=== PATIENT | female | born 1995 | race Caucasian/White ===

== ENCOUNTER 2019-09-11 19:25 | Emergency (ER) | payer BC ==
[~2019-09-11] VITALS: Ht 172.7 cm; Wt 127.0 kg
[2019-09-11] MEDS ORDERED: VYVANSE40 MG PO (19:39)
[2019-09-11] MEDS ORDERED: ONDANSETRON HCL8 MG PO (19:39)
[2019-09-11] MEDS ORDERED: OMEPRAZOLE20 MG PO (22:40)
== END 2019-09-11 22:50 | disposition home or self-care (01) ==
LOC: ED 19:25
DX: R10.9 Unspecified abdominal pain (principal)
CPT/HCPCS: 74177; 80053; 81001; 83690; 84703; 85025; 96361; 96375; 99284-25; C9113; J2405; J2550; J7030; Q9967

== ENCOUNTER 2020-07-30 17:44 | Inpatient (IN) | payer BC ==
[~2020-07-30] VITALS: Ht 170.2 cm; Wt 145.2 kg
[~2020-07-30 17:44] MED LIST: OMEPRAZOLE20 MG PO; ONDANSETRON HCL8 MG PO; VYVANSE40 MG PO
--- NOTE | 2020-07-30 18:00 | NUR ---
BOTH NARES SWABBED FOR COVID-19 WITHOUT COMPLICATION. SAMPLE TAKEN TO [facility] FOR RAPID TESTING.
--- NOTE | 2020-07-31 10:09 | PR ---
[facility] [address] [place], [place] [address] Signed Progress Notes IP Datetime Report Generated by KASIE: 07/31/2020 10:09 PROGRESS NOTES: [id number] Impression: Reassuring Heart Rate (Annotations: Data stored by KASIE on behalf of user) Plan: Cervical Ripening VITAL SIGNS: [id number] Vital Signs: Reviewed EXAM: [id number] Dilatation: 0.0 Effacement: 60 Station: -2 Contractions: irregular MEMBRANES: [id number] Comments: Feeling contractions, not yet painful. Headache present but no worse. Reviewed labs; Cr has returned to baseline. However, reflexes 3+ bilaterally (patellar) no clonus. Bilateral lower extremity edema is worse. S/p cytotec x 5, continue cytotec induction but will consider cook catheter when dilated enough to allow. Discussed with pt and her , they are agreeable with plan. FETUS A: [id number] FHR Baseline: 155 Variability: Moderate 6-25bpm Accelerations: 15X15 Decelerations: Variable FHR Category: Category II Presentation: Vertex Comments on Fetus A: No evidence of persistent acidosis FETUS B: [id number] Signing Physician: Paolo Anderson DO Copies: ~ *Electronically Signed* 07/31/20 1009 PAOLO ANDERSON DO PATIENT NAME: ZOILA QURESHI PROGRESS NOTE DATE OF : [birth year] PHYSICIAN: PAOLO ANDERSON #: [id number] REPORT IS CONFIDENTIAL AND NOT TO BE RELEASED WITHOUT AUTHORIZATION
--- NOTE | 2020-07-31 20:38 | PR ---
[facility] [address] [place], [place] [address] Signed Progress Notes IP Datetime Report Generated by CPN: 07/31/2020 20:38 PROGRESS NOTES: [id number] Impression: Reassuring Heart Rate Procedures: Artificial ROM Plan: Continue Present Management VITAL SIGNS: [id number] Vital Signs: Reviewed EXAM: [id number] Dilatation: 0.0 Effacement: 60 Station: -2 Contractions: irregular MEMBRANES: [id number] Membranes Status: Ruptured Comments: 24 yo at 38 weeks gestation MIOL for pre-eclampsia without severe features s/p cytotec x 8 Attempted Cook placement, but during attempt cervix dilated to 1.5cm and moved from far left to midline, with head well-applied, allowing for AROM of large amount clear fluid. Plan: recheck in 2 hours or sooner if requesting epidural. If no change in 2 hours, anticipate low-dose pitocin, as was discussed with pt and FOB. All questions answered to the best of my ability to the apparent satisfaction of patient and FOB. FETUS A: [id number] FHR Baseline: 155 Variability: Moderate 6-25bpm Accelerations: 15X15 Decelerations: Variable FHR Category: Category II Presentation: Vertex Comments on Fetus A: No evidence of persistent acidosis FETUS B: [id number] Signing Physician: Paolo Anderson DO Copies: *Electronically Signed* 07/31/202037 PAOLO ANDERSON DO PATIENT NAME: ZOILA QURESHIQUALINE PROGRESS NOTE DATE OF : 93 PHYSICIAN: PAOLO ANDERSON DO RPT #: [id number] REPORT IS CONFIDENTIAL AND NOT TO BE RELEASED WITHOUT AUTHORIZATION [address] [address] Signed ~ *Electronically Signed* 07/31/202037 PAOLO ANDERSON DO PATIENT NAME: ZOILA QURESHIQUALINE PROGRESS NOTE DATE OF : 93 PHYSICIAN: PAOLO ANDERSON DO RPT #: [id number] REPORT IS CONFIDENTIAL AND NOT TO BE RELEASED WITHOUT AUTHORIZATION
--- NOTE | 2020-08-01 08:18 | PR ---
[facility] [address] [place], [place] [address] Signed Progress Notes IP Datetime Report Generated by CPFrancheska: 08/01/2020 08:18 PROGRESS NOTES: [id number] Impression: Normal Progression of Labor Procedures: Intrauterine Pressure Catheter; Scalp Electrode Plan: Continue Present Management; Anesthesia Consult VITAL SIGNS: [id number] Vital Signs: Reviewed EXAM: [id number] Dilatation: 4.0 Effacement: 90 Station: -1 Contractions: irregular MEMBRANES: [id number] Membranes Status: Ruptured Comments: 24 yo at 38.1 MIOL for Pre-eclampsia without severe features GDM-insulin s/p cytotec x 8, AROM yielding large amount clear fluid at 07/31, pitocin started overnight, now making cervical change. Significant pain/anxiety; epidural provided only unilateral coverage Discussed options: recommend replacing epidural, TUTORING CLINICIAN will be available after first OR case. Ok to give IV pain medication in the meantime. Fentanyl/phenergan ordered. FETUS A: [id number] FHR Baseline: 155 Variability: Moderate 6-25bpm Accelerations: 15X15 Decelerations: Variable FHR Category: Category II Presentation: Vertex Comments on Fetus A: No evidence of persistent acidosis FETUS B: [id number] Signing Physician: Paolo Anderson DO Copies: *Electronically Signed* 08/01/20 0818 PAOLO ANDERSON DO PATIENT NAME: ZOILA QURESHI PROGRESS NOTE DATE OF : 93 PHYSICIAN: PAOLO ANDERSON DO RPT #: [id number] REPORT IS CONFIDENTIAL AND NOT TO BE RELEASED WITHOUT AUTHORIZATION [facility] [address] [place] [id number] Signed ~ *Electronically Signed* 08/01/20 0818 PAOLO ANDERSON DO PATIENT NAME: ZOILA QURESHI PROGRESS NOTE DATE OF : 93 PHYSICIAN: PAOLO ANDERSON DO RPT #: [id number] REPORT IS CONFIDENTIAL AND NOT TO BE RELEASED WITHOUT AUTHORIZATION
--- NOTE | 2020-08-02 09:11 | PR ---
[facility] [address] [place], [place] [address] Signed PP Progress Notes Datetime Report Generated by KASIE: 08/02/2020 09:11 SUBJECTIVE: [id number] Pain: Within Normal Limits Nausea/Vomiting: Denies Flatus: Yes Bowel Movement: No Vital Signs: [id number] Vital Signs: Reviewed Notable Details: Elevated BP Cardiovascular: Normal Respiratory: Normal Abdomen/Uterus: Normal Lochia: Normal Extremities: Abnormal Exam Comments: NAD RRR CTAB fundus firm below umbilicus extremities: 2+ pitting edema BL LE difficulty , requesting consult IMPRESSION/PLAN/PROCEDURES: [id number] Impression: Normal Progression; Difficulties; Induced Hypertension Plan: Continue Present Management; Consult Progress Notes: PPD#1 s/p MIOL for pre-eclampsia without severe features Intermittent HTN, pt reports her BP has been "much higher" if she is talking during BP checks; will continue to monitor BP today q2h, pt counseled to not talk during checks, and if consistently elevated start Procardia before discharge. Desires OCP for contraception, discussed waiting until 6 weeks to start then plan minipill. Has pshychiatry appt scheduled for first week of August Signing Physician: Paolo Anderson DO Copies: *Electronically Signed* 08/02/20910 PAOLO ANDERSON DO PATIENT NAME: ZOILA QURESHI PROGRESS NOTE DATE OF : 93 PHYSICIAN: PAOLO ANDERSON DO RPT #: [id number] REPORT IS CONFIDENTIAL AND NOT TO BE RELEASED WITHOUT AUTHORIZATION [address] [place], [place] [address] Signed ~ *Electronically Signed* 08/02/20 09 PAOLO ANDERSON DO PATIENT NAME: ZOILA QURESHI PROGRESS NOTE DATE OF : 93 PHYSICIAN: PAOLO ANDERSON DO RPT #: [id number] REPORT IS CONFIDENTIAL AND NOT TO BE RELEASED WITHOUT AUTHORIZATION
== END 2020-08-02 16:20 | disposition home or self-care (01) | DRG 807 ==
LOC: FBC 17:44
PROVIDERS: ADMIT Obstetrics & Gynecology; ATTEND Obstetrics & Gynecology
PROC: 3E0P7VZ Introduction of Hormone into Female Reproductive, Via Natural or Artificial Opening (ICD-10-PCS; 2020-07-30)
PROC: 10907ZC Drainage of Amniotic Fluid, Therapeutic from Products of Conception, Via Natural or Artificial Opening (ICD-10-PCS; 2020-07-31)
PROC: 00HU33Z Insertion of Infusion Device into Spinal Canal, Percutaneous Approach (ICD-10-PCS; 2020-07-31)
PROC: 3E0R3BZ Introduction of Anesthetic Agent into Spinal Canal, Percutaneous Approach (ICD-10-PCS; 2020-07-31)
PROC: 10E0XZZ Delivery of Products of Conception, External Approach (ICD-10-PCS; principal; 2020-08-01)
PROC: 10H07YZ Insertion of Other Device into Products of Conception, Via Natural or Artificial Opening (ICD-10-PCS; 2020-08-01)
PROC: 0KQM0ZZ Repair Perineum Muscle, Open Approach (ICD-10-PCS; 2020-08-01)
DX: O14.04 Mild to moderate pre-eclampsia, complicating childbirth (principal); Z37.0 Single live birth; Z3A.38 38 weeks gestation of pregnancy; Z20.822 Contact with and (suspected) exposure to COVID-19; O76 Abnormality in fetal heart rate and rhythm complicating labor and delivery; O24.424 Gestational diabetes mellitus in childbirth, insulin controlled; O99.214 Obesity complicating childbirth; E66.9 Obesity, unspecified; O70.1 Second degree perineal laceration during delivery; O99.52 Diseases of the respiratory system complicating childbirth; J45.909 Unspecified asthma, uncomplicated; O99.344 Other mental disorders complicating childbirth; F41.9 Anxiety disorder, unspecified; F32.9 Major depressive disorder, single episode, unspecified; Z88.8 Allergy status to other drugs, medicaments and biological substances; Z79.899 Other long term (current) drug therapy
CPT/HCPCS: 01960; 36415; 80053; 85025; 85027; C9803; J0456; J2001; J2405; J2550; J2590; J2795; J3010; J7060; J7121; U0003

== ENCOUNTER 2021-05-22 10:17 | Emergency (ER) | payer BC ==
[~2021-05-22] VITALS: Ht 172.7 cm; Wt 145.2 kg
--- OUTSIDE RECORDS SUMMARY | 2021-05-22 10:20 | XMS ---
PreManage Notification: ZOILA QURESHI Security Guide Domestic Tour Events No recent Security Events currently on file CRITERIA MET - [facility] CARE PROVIDERS There are no care providers on record at this time. Connie has no Care Guidelines for this patient. [place] VISIT COUNT (12 MO.) Fabby Lewis 1 [place] TOTAL 2 NOTE: Visits indicate total known visits. ED/C VISIT TRACKING (12 MO.) 05/22/2021 10:19 [place] [facility] [place] TYPE: Emergency COMPLAINT: - HEADACHE 10/22/2020 18:52 [place] TYPE: Emergency INPATIENT VISIT TRACKING (12 MO.) 07/30/2020 17:44 [place] TYPE: [facility] COMPLAINT: - INDUCTION DIAGNOSES: - Major depressive disorder, single episode, unspecified - Other mental disorders complicating childbirth - Second degree perineal laceration during delivery - Anxiety disorder, unspecified - Unspecified asthma, uncomplicated - Abnormality in heart rate and rhythm complicating labor and delivery - Other extermination supervisor (current) drug therapy - Unspecified asthma, uncomplicated - Mild to moderate pre-eclampsia, complicating childbirth - Single live - Obesity complicating childbirth - Mild to moderate pre-eclampsia, third trimester - Single live - Diseases of the respiratory system complicating childbirth - Other mental disorders complicating childbirth - Diseases of the respiratory system complicating childbirth - Abnormality in heart rate and rhythm complicating labor and delivery - Allergy status to other drugs, medicaments and biological substances - Obesity complicating childbirth - Mild to moderate pre-eclampsia, complicating childbirth - Other extermination supervisor (current) drug therapy - Major depressive disorder, single episode, unspecified - Allergy status to other drugs, medicaments and biological substances - Gestational diabetes mellitus in childbirth, insulin controlled - 38 weeks gestation of - Anxiety disorder, unspecified - 38 weeks gestation of - Obesity, unspecified - Gestational diabetes mellitus in childbirth, insulin controlled - Obesity, unspecified - Second degree perineal laceration during delivery [email or web address]
[2021-05-22] MEDS ORDERED: VENLAFAXINE HC150 MG PO (11:25)
[2021-05-22] MEDS ORDERED: VYVANSE50 MG PO (11:26)
[2021-05-22] MEDS ORDERED: DIPHENHYDRAMINE25 M1 PO (11:26)
[2021-05-22] MEDS ORDERED: PYRIDOXINE HCL25 MG PO (11:26)
[2021-05-22] MEDS ORDERED: ACETAMINOPHEN-1 EAC1 PO (15:52)
== END 2021-05-22 16:19 | disposition home or self-care (01) ==
LOC: ED 10:17
DX: R51.9 Headache, unspecified (principal); G43.909 Migraine, unspecified, not intractable, without status migrainosus; Z88.8 Allergy status to other drugs, medicaments and biological substances; Z79.899 Other long term (current) drug therapy
CPT/HCPCS: 36415; 70450; 80053; 81001; 84550; 85025; 96365; 99284-25; J2765; J7030

== ENCOUNTER 2021-06-04 19:34 | Emergency (ER) | payer BC ==
[~2021-06-04] VITALS: Ht 170.2 cm; Wt 144.2 kg
[~2021-06-04 19:34] MED LIST changes: +ACETAMINOPHEN-1 EAC1 PO; +DIPHENHYDRAMINE25 M1 PO; +PYRIDOXINE HCL25 MG PO; +VENLAFAXINE HC150 MG PO; +VYVANSE50 MG PO
--- OUTSIDE RECORDS SUMMARY | 2021-06-04 19:38 | XMS ---
PreManage Notification: ZOILA WADE Security English As A Second Language Teacher Events No recent Security Events currently on file CRITERIA MET - [facility] - Has Care Guidelines - PDMP - [facility] - 2 Visits in 30 Days CARE PROVIDERS JEANIE VIEIRA Nurse Practitioner: 05/23/2021-Current PHONE: [phone] Connie has no Care Guidelines for this patient. Care History Medical/Surgical 05/23/2021 [facility] - Patient is currently established with [facility]. If patient is seen in the ED during business hours. Please contact CHWs at [facility]. Care Recommendation: If this patient has had 5 or more Emergency Department visits in the last 12 months.\T\nbsp;Patient will require education on the scope and purpose of the ED as an acute care provider not a Primary Care Provider and should not be utilized for chronic conditions.\T\nbsp; These are guidelines and the provider should exercise clinical judgment when providing care. E.D. VISIT COUNT (12 MO.) King Lewis 2 [place] TOTAL 3 NOTE: Visits indicate total known visits. ED/UCC VISIT TRACKING (12 MO.) 06/04/2021 19:36 [place] [facility] [place] TYPE: Emergency COMPLAINT: - VOMITING/19 WEEKS PREG 05/22/2021 10:19 [place] [facility] [place] TYPE: Emergency COMPLAINT: - HEADACHE DIAGNOSES: - Migraine, unspecified, not intractable, without status migrainosus - Allergy status to other drugs, medicaments and biological substances - Other fpc (current) drug therapy - Headache, unspecified 10/22/2020 18:52 [place] [facility] TYPE: Emergency INPATIENT VISIT TRACKING (12 MO.) 07/30/2020 17:44 [place] TYPE: [facility] COMPLAINT: - INDUCTION DIAGNOSES: - Major depressive disorder, single episode, unspecified - Other mental disorders complicating childbirth - Second degree perineal laceration during delivery - Anxiety disorder, unspecified - Unspecified asthma, uncomplicated - Abnormality in heart rate and rhythm complicating labor and delivery - Other continuous churn buttermaker (current) drug therapy - Unspecified asthma, uncomplicated [...] to moderate pre-eclampsia, complicating childbirth - Other fpc (current) drug therapy - Major depressive disorder, single episode, unspecified - Allergy status to other drugs, medicaments and biological substances - Gestational diabetes mellitus in childbirth, insulin controlled - 38 weeks gestation of - Anxiety disorder, unspecified - 38 weeks gestation of - Obesity, unspecified - Gestational diabetes mellitus in childbirth, insulin controlled - Obesity, unspecified - Second degree perineal laceration during delivery [email or web address]
== END 2021-06-04 23:20 | disposition home or self-care (01) ==
LOC: ED 19:34
DX: O21.9 Vomiting of pregnancy, unspecified (principal); O99.352 Diseases of the nervous system complicating pregnancy, second trimester; G43.909 Migraine, unspecified, not intractable, without status migrainosus; Z88.8 Allergy status to other drugs, medicaments and biological substances; Z79.899 Other long term (current) drug therapy; Z3A.19 19 weeks gestation of pregnancy
CPT/HCPCS: 36415; 80053; 81001; 83735; 85025; 96374; 96376; 99284-25; J2405; J7030

== ENCOUNTER 2021-08-24 18:56 | Emergency (ER) | payer BC ==
[~2021-08-24] VITALS: Ht 170.2 cm; Wt 143.8 kg
--- OUTSIDE RECORDS SUMMARY | 2021-08-24 19:00 | XMS ---
PreManage Notification: ZOILA WADE Security Fiscal Manager Events No recent Security Events currently on file CRITERIA MET - PDM - [facility] - Has Care Guidelines CARE PROVIDERS JEANIE VIEIRA Nurse Practitioner: 05/23/2021-Current PHONE: [phone] Connie has no Care Guidelines for this patient. Care History Medical/Surgical 05/23/2021 [facility] - Patient is currently established with [facility]. If patient is seen in the ED during business hours. Please contact CHWs at [facility]. Care Recommendation: If this patient has had [...] providing care. E.D. VISIT COUNT (12 MO.) Fabby Lewis 3 [facility] TOTAL 4 NOTE: Visits indicate total known visits. ED/UCC VISIT TRACKING (12 MO.) 08/24/2021 18:57 [place] [facility] [place] TYPE: Emergency COMPLAINT: - CUT RIGHT FINGER 06/04/2021 19:36 [place] [facility] [place] TYPE: Emergency COMPLAINT: - VOMITING/19 WEEKS PREG DIAGNOSES: - Other residential (current) drug therapy - Allergy status to other drugs, medicaments and biological substances - 19 weeks gestation of - Diseases of the nervous system complicating , second trimester - Vomiting, unspecified - Migraine, unspecified, not intractable, without status migrainosus - Vomiting of , unspecified 05/22/2021 10:19 [place] TYPE: Emergency COMPLAINT: - HEADACHE DIAGNOSES: - Migraine, unspecified, not intractable, without status migrainosus - Allergy status to other drugs, medicaments and biological substances - Other terminal carman (current) drug therapy - Headache, unspecified 10/22/2020 18:52 [facility] TYPE: Emergency INPATIENT VISIT TRACKING (12 MO.) No inpatient visits to display in this time frame [email or web address]
[2021-08-24] MEDS ORDERED: EFFEXOR XR150 MG PO (19:22)
[2021-08-24] MEDS ORDERED: HUMULIN N100 UNIT/1 SUB-Q (19:23)
[2021-08-24] MEDS ORDERED: ADULT ASPIRIN R81 MG PO (19:24)
== END 2021-08-24 21:33 | disposition home or self-care (01) ==
LOC: ED 18:56
DX: S61.210A Laceration without foreign body of right index finger without damage to nail, initial encounter (principal); W25.XXXA Contact with sharp glass, initial encounter; Z23 Encounter for immunization; G43.909 Migraine, unspecified, not intractable, without status migrainosus; Z88.8 Allergy status to other drugs, medicaments and biological substances; Z79.899 Other long term (current) drug therapy; Z79.82 Long term (current) use of aspirin
CPT/HCPCS: 12001; 90471; 90715; 99282-25

== ENCOUNTER 2021-10-04 | Inpatient (IN) | payer BC ==
[~2021-10-04] VITALS: Ht 172.7 cm; Wt 149.7 kg
[~2021-10-04] MED LIST changes: +ADULT ASPIRIN R81 MG PO; +EFFEXOR XR150 MG PO; +HUMULIN N100 UNIT/1 SUB-Q
--- NOTE | ~2021-10-04 | OR ---
[facility] [address], [place] [address] Draft DATE OF OPERATION: 10/05/2021 SURGEON: Paolo Anderson DO PROCEDURE: Primary low-transverse . CHEST PAINTING AND SEALING SUPERVISOR: Sydney Haywood MD PREOPERATIVE DIAGNOSES: Non-reassuring heart tones remote from delivery, gestational hypertension, GDM insulin controlled, BMI 49, anxiety and depression, ADHD, migraines, 37 weeks gestation. POSTOPERATIVE DIAGNOSES: Term , delivered, nuchal x2, gestational hypertension, gestational diabetes, BMI 49, anxiety and depression, ADHD, migraines. ANESTHESIA: Epidural. BLOOD LOSS: 750 mL. COMPLICATIONS: None. FINDINGS: Viable term female weighing 6 pounds 7 ounces, Apgars 9 and 9 at 1 and 5 minutes respectively. Nuchal cord tight x2. Normal-appearing uterus, tubes, and ovaries. INDICATIONS: The patient is a very pleasant 25-year-old G2, P1-0-0-1, who presented for scheduled medical induction of labor for gestational hypertension. She was induced with Cytotec, amniotomy and Pitocin and progressed slowly but steadily after starting Pitocin. After dilating to 5 cm, she began having an occasional variable D cells which progressed in frequency . They were initially responsive to amnioinfusion, but ultimately amnioinfusion and Pitocin were discontinued due to worsening status with recurrent deep variable decelerations. At this point, the patient was rechecked and while cervix was progressively effacing was only dilated to 6 cm. Risks, benefits, and alternatives PATIENT NAME: ZOILA WADE OPERATIVE REPORT DATE OF : [birth year] REPORT #: [id number] PHYSICIAN: PAOLO ANDERSON DO PCP: JEANIE VIEIRA REPORT IS CONFIDENTIAL AND NOT TO BE RELEASED WITHOUT AUTHORIZATION [facility] [address] [place] [id number] Draft to delivery were discussed for non-reassuring status and the patient elected to proceed. Terbutaline was administered with improvement in heart tones. Consents were signed and the patient was taken to the operating room. PROCEDURE IN DETAIL: The patient was brought back to the operating room where she was given 3 g Ancef and 500 mg azithromycin preoperatively. Epidural was bolused by Anesthesia. were placed and Rios was confirmed to be in place and functioning well. She was prepped and draped. She was positioned in supine position with a leftward tilt and prepped and draped in a normal sterile fashion. Adequate anesthesia was confirmed and Pfannenstiel incision was made with a scalpel and carried through to the underlying layer of fascia, which was incised at midline and extended laterally with Fang scissors. Inferior margin of fascia was grasped with Preston's, elevated and underlying rectus muscles dissected off bluntly and sharply with Fang scissors, this was released. Superior margin of fascia was grasped and elevated with Preston clamps. Underlying rectus muscle was dissected off bluntly and sharply with Fang scissors with Bovie cautery used to cauterize perforating vessels as they were encountered. Peritoneum was entered bluntly and extended with lateral traction. Americo retractor was placed and hysterotomy was made with a scalpel, this was extended laterally with gentle digital traction superiorly and inferiorly. Infant's head was gently grasped and elevated to the hysterotomy and delivered easily followed by the remainder of the body. Nuchal cord x2 was reduced. Cord was immediately doubly clamped and cut and baby was handed off to waiting nursery team including respiratory therapist and railroad crossing protection maintainer. Segment of cord was collected for cord gases. Cord blood was collected for type and Jo-Ann and placenta was manually extracted. Uterus was cleared of clots and debris and hysterotomy was closed in a double-layer closure with 0 Monocryl, 1st in a running locked manner, secondly, in an imbricating manner. Excellent hemostasis was noted. Pelvis was irrigated with warm sterile saline and hemostasis was once again confirmed. Uterus, tubes, and ovaries were inspected with normal findings as noted above. Peritoneum was closed with 2-0 Vicryl in a running fashion. Rectus muscle was approximated at midline with 0 Vicryl in a simple interrupted fashion after which the rectus muscle was inspected. Perforating vessels were cauterized with Bovie cautery and suction irrigation with warm sterile saline was performed, confirming excellent hemostasis. The fascia was closed with 0 Vicryl in a running fashion, working 1st from right apex to midline, then left apex to midline meeting in the middle. Subcutaneous layer was irrigated with warm sterile saline. Perforating vessels were cauterized with Bovie cautery and closed in two separate layers for Lul's fascia and subcutaneous tissue with 3-0 Vicryl in a running fashion for each layer. Skin was closed with cheyenne. Uterus was Crede'd and noted to be firm. Sponge and instrument counts were correct x2. The patient was taken to recovery in stable and satisfactory condition. PATIENT NAME: ZOILA WADE OPERATIVE REPORT DATE OF : [birth year] REPORT #: [id number] PHYSICIAN: PAOLO ANDERSON DO PCP: JEANIE VIEIRA CLIENT PROFESSIONAL REPORT IS CONFIDENTIAL AND NOT TO BE RELEASED WITHOUT AUTHORIZATION [facility] [address] [place], [place] [address] Draft DO KAYLEY Stack/DEMETRIA /[id number] Copies: ~ PATIENT NAME: ZOILA WADE OPERATIVE REPORT DATE OF : [birth year] REPORT #: [id number] PHYSICIAN: PAOLO ANDERSON DO PCP: JEANIE VIEIRA REPORT IS CONFIDENTIAL AND NOT TO BE RELEASED WITHOUT AUTHORIZATION
--- NOTE | 2021-10-04 12:49 | PR ---
[facility] [address] [place], [place] [address] Signed Progress Notes IP Datetime Report Generated by CPN: 10/04/2021 12:49 PROGRESS NOTES: [id number] Impression: Reassuring Heart Rate Procedures: Epidural Placement Plan: Continue Present Management VITAL SIGNS: [id number] Vital Signs: Reviewed VS Notable Details: Severe-range BP at 0733 in error, see repeat. Normal preE labs on admission EXAM: [id number] Dilatation: 2.0 Effacement: 60 Station: -2 Contractions: mild, irregular, tracing poorly while side-lying MEMBRANES: [id number] Membranes Status: Intact Comments: Pt is doing well, sitting in tub for management of contraction pain. requesting epidural. S/p cytotec x 4, anticipate AROM after comfortable with epidural. -Glucose continues to be well-controlled without further insulin -BP normotensive since elevated (as noted at time of H_P), asymptomatic Plan: anesethesia notified for epidural AROM after comfortable with epidural FETUS A: [id number] FHR Baseline: 135 Variability: Moderate 6-25bpm Accelerations: 15X15 Decelerations: None FHR Category: Category I Comments on Fetus A: No evidence of acidemia FETUS B: [id number] Signing Physician: Paolo Anderson DO *Electronically Signed* 10/04/21 1249 PAOLO ANDERSON DO PATIENT NAME: ZOILA WADE PROGRESS NOTE DATE OF : 93 PHYSICIAN: PAOLO ANDERSON #: [id number] REPORT IS CONFIDENTIAL AND NOT TO BE RELEASED WITHOUT AUTHORIZATION
--- NOTE | 2021-10-04 15:13 | PR ---
[facility] [address] [place], [place] [address] Signed Progress Notes IP Datetime Report Generated by KASIE: 10/04/2021 15:13 PROGRESS NOTES: [id number] Impression: Normal Progression of Labor; Reassuring Heart Rate Procedures: Artificial ROM Plan: Continue Present Management VITAL SIGNS: [id number] Vital Signs: Reviewed VS Notable Details: Severe-range BP at 0733 in error, see repeat. Normal preE labs on admission EXAM: [id number] Dilatation: 3.0 Effacement: 60 Station: -3 Contractions: mild, irregular, tracing poorly while side-lying MEMBRANES: [id number] Membranes Status: Ruptured Comments: MIOL for gHTN, normotensive with mild headache since epidural. Continue to monitor, treat headache with tylenol. GDM - no additional glucose required Labor: s/p cytotec, AROM performed as noted. Comfortable with epidural. Recheck cervix in 1 hour or sooner if indicated. If no cervical change after 1 hour initiate low-dose pitocin FETUS A: [id number] FHR Baseline: 135 Variability: Moderate 6-25bpm Accelerations: 15X15 Decelerations: None FHR Category: Category I Comments on Fetus A: No evidence of acidemia FETUS B: [id number] Signing Physician: Paolo Anderson DO *Electronically Signed* 10/04/21 1513 PAOLO ANDERSON DO PATIENT NAME: ZOILA WADE PROGRESS NOTE DATE OF : [birth year] PHYSICIAN: PAOLO ANDERSON DO [facility] #: [id number] REPORT IS CONFIDENTIAL AND NOT TO BE RELEASED WITHOUT AUTHORIZATION
--- NOTE | 2021-10-04 21:03 | PR ---
[facility] [address] [place], [place] [address] Signed Progress Notes IP Datetime Report Generated by CPN: 10/04/2021 21:03 PROGRESS NOTES: [id number] Impression: Reassuring Heart Rate Procedures: Scalp Electrode Plan: Continue Present Management VITAL SIGNS: [id number] Vital Signs: Reviewed VS Notable Details: Severe-range BP at 0733 in error, see repeat. Normal preE labs on admission EXAM: [id number] Dilatation: 4.0 Effacement: 75 Station: -2 Contractions: mild, irregular, tracing poorly while side-lying MEMBRANES: [id number] Membranes Status: Ruptured ROM Note: No fluid at this time. Comments: Normotensive Feeling "every single contraction" and complains epidural is wearing off Continue low-dose pitocin and maternal position changes FETUS A: [id number] FHR Baseline: 135 Variability: Moderate 6-25bpm Accelerations: 15X15 Decelerations: None FHR Category: Category I Comments on Fetus A: No evidence of acidemia FETUS B: [id number] Signing Physician: Paolo Anderson DO Copies: ~ *Electronically Signed* 10/04/212102 PAOLO ANDERSON DO PATIENT NAME: ZOILA WADE PROGRESS NOTE DATE OF : 93 PHYSICIAN: PAOLO ANDERSON #: [id number] REPORT IS CONFIDENTIAL AND NOT TO BE RELEASED WITHOUT AUTHORIZATION
--- NOTE | 2021-10-04 22:06 | PR ---
[facility] [address] [place], [place] [address] Signed Progress Notes IP Datetime Report Generated by CPN: 10/04/2021 22:06 PROGRESS NOTES: [id number] Impression: Reassuring Heart Rate Procedures: Intrauterine Pressure Catheter; Amnio Infusion Plan: Continue Present Management VITAL SIGNS: [id number] Vital Signs: Reviewed VS Notable Details: Severe-range BP at 0733 in error, see repeat. Normal preE labs on admission EXAM: [id number] Dilatation: 5.0 Effacement: 75 Station: -1 Contractions: mild, irregular, tracing poorly while side-lying MEMBRANES: [id number] Membranes Status: Ruptured ROM Note: No fluid at this time. Comments: Intermixed variable and early decelerations. Patient comfortable after epidural re-dose IUPC placed without difficulty, amnioinfusion of warmed LRS initiated at 200mL bolus then 125mL/hr continuous infusion started Continue to titrate pitocin to adequate contractions FETUS A: [id number] FHR Baseline: 135 Variability: Moderate 6-25bpm Accelerations: 15X15 Decelerations: None FHR Category: Category I Comments on Fetus A: No evidence of acidemia FETUS B: [id number] Signing Physician: Paolo Anderson DO Copies: ~ *Electronically Signed* 10/04/21 7585 PAOLO ANDERSON DO PATIENT NAME: ZOILA WADE PROGRESS NOTE DATE OF : 93 PHYSICIAN: PAOLO ANDERSON DO [facility] #: [id number] REPORT IS CONFIDENTIAL AND NOT TO BE RELEASED WITHOUT AUTHORIZATION
--- NOTE | 2021-10-05 01:15 | NUR ---
10/05/21 0115 Cheryl [place] 0101: PT ARRIVES TO [facility] ROOM 102. DAD AND BABY ARE ALREADY IN THE ROOM. PT IS C/O BEING TIRED. STATES PAIN IS 4/10. REPORTS HER NECK IS HURTING, PILLOW IS ADJUSTED AND HELPS WITH THE PAIN.
--- NOTE | 2021-10-06 15:56 | PR ---
[facility] [address] [place], [place] [address] Signed PP Progress Notes Datetime Report Generated by KASIE: 10/06/2021 15:56 SUBJECTIVE: [id number] Pain: Within Normal Limits Nausea/Vomiting: Denies Flatus: Yes Bowel Movement: No Vital Signs: [id number] Vital Signs: Reviewed Notable Details: mildly elevated BP @ 0815, none since, denies BRADLEY/ vision changes/ RUQ pain Cardiovascular: Normal Respiratory: Normal Abdomen/Uterus: Normal Lochia: Normal Breasts: Normal Extremities: Normal Incision: Normal Progress: Normal Exam Comments: NAD, ambulating well RRR No dyspnea Abd SNTND, FFBU Incision: c/d/i Ext: 2+ edema BL, neg Kenneth's IMPRESSION/PLAN/PROCEDURES: [id number] Impression: Normal Progression Plan: Continue Present Management Procedures: None Progress Notes: Pt is a 25 yo POD#1 s/p PLTCS for nonreassuring heart tones, remote from delivery -pt seen and evaluated, progressing well postop/ -ambulating, voiding, tolerating regular diet, +flatus/ + BM, pain well-controlled with orals, lochia light -one isolated mildly elevated blood pressure , continue to monitor, asymptomatic -hgb 11.1 POD#1 from 11.5 on admission *Electronically Signed* 10/06/21 1556 PAOLO ANDERSON DO PATIENT NAME: ZOILA WADE PROGRESS NOTE DATE OF : [birth year] PHYSICIAN: PAOLO ANDERSON DO RPT #: [id number] REPORT IS CONFIDENTIAL AND NOT TO BE RELEASED WITHOUT AUTHORIZATION [facility] [address], [place] [address] Signed Plan: continue current care, anticipate DC to home tomorrow if BP remain stable. Signing Physician: Paolo Anderson DO Copies: ~ *Electronically Signed* 10/06/21 1556 PAOLO ANDERSON DO PATIENT NAME: ZOILA WADE PROGRESS NOTE DATE OF : [birth year] PHYSICIAN: PAOLO ANDERSON DO RPT #: [id number] REPORT IS CONFIDENTIAL AND NOT TO BE RELEASED WITHOUT AUTHORIZATION
--- NOTE | 2021-10-07 07:56 | PR ---
[facility] [address] [place], [place] [address] Signed PP Progress Notes Datetime Report Generated by CPFrancheska: 10/07/2021 07:56 SUBJECTIVE: [id number] Pain: Within Normal Limits Nausea/Vomiting: Denies Flatus: Yes Bowel Movement: Yes Vital Signs: [id number] Vital Signs: Reviewed; Within Normal Limits Notable Details: mildly elevated BP @ 0815, none since, denies BRADLEY/ vision changes/ RUQ pain Cardiovascular: Normal Respiratory: Normal Abdomen/Uterus: Normal Lochia: Normal Breasts: Normal Extremities: Normal Incision: Normal Progress: Normal Exam Comments: NAD ambulating in room RRR No dyspnea/ retractions Abd SNTND Ext: 2+ BLLE edema IMPRESSION/PLAN/PROCEDURES: [id number] Impression: Normal Progression Plan: Continue Present Management; Discharge Procedures: None Progress Notes: POD#2 s/p PLTCS nonreassuring heart tones remote from delivery -Progressing well postop, requesting DC to home today -Ambulating, voiding, tolerating regular diet, pain well-controlled with orals, lochia light, +flatus and BM -Plan staple removal in office gHTN: occasional mildly elevated BP , asymptomatic, no severe BP. PreE labs negative on admission -follow-up in office within 72h for BP check GDM: controlled on insulin in , plan 2hr GTT at 6 weeks *Electronically Signed* 10/07/21 0756 PAOLO ANDERSON DO PATIENT NAME: ZOILA WADE PROGRESS NOTE DATE OF : [birth year] PHYSICIAN: PAOLO ANDERSON DO RPT #: [id number] REPORT IS CONFIDENTIAL AND NOT TO BE RELEASED WITHOUT AUTHORIZATION [facility] [address] [facility], [place] [address] Signed Anxiety/ depression: mood stable on effexor 150mg, plan to continue ADHD: vyvanse only while working, hold until return to work. Not planning to use while BMI 49: defer staple removal (complete in office with BP check) Signing Physician: Paolo Anderson DO Copies: ~ *Electronically Signed* 10/07/21 0756 PAOLO ANDERSON DO PATIENT NAME: ZOILA WADE PROGRESS NOTE DATE OF : [birth year] PHYSICIAN: PAOLO ANDERSON DO RPT #: [id number] REPORT IS CONFIDENTIAL AND NOT TO BE RELEASED WITHOUT AUTHORIZATION
== END 2021-10-07 09:15 | disposition home or self-care (01) | DRG 788 ==
LOC: FBC → MS 10-05 08:00 → FBC 10-05 10:51
PROVIDERS: ADMIT Obstetrics & Gynecology; ATTEND Obstetrics & Gynecology
PROC: 10907ZC Drainage of Amniotic Fluid, Therapeutic from Products of Conception, Via Natural or Artificial Opening (ICD-10-PCS; 2021-10-05)
PROC: 10H07YZ Insertion of Other Device into Products of Conception, Via Natural or Artificial Opening (ICD-10-PCS; 2021-10-05)
PROC: 10D00Z1 Extraction of Products of Conception, Low, Open Approach (ICD-10-PCS; principal; 2021-10-05 12:37)
DX: O13.4 Gestational [pregnancy-induced] hypertension without significant proteinuria, complicating childbirth (principal); O99.344 Other mental disorders complicating childbirth; F41.9 Anxiety disorder, unspecified; F32.A Depression, unspecified; F90.9 Attention-deficit hyperactivity disorder, unspecified type; O76 Abnormality in fetal heart rate and rhythm complicating labor and delivery; O77.0 Labor and delivery complicated by meconium in amniotic fluid; Z20.822 Contact with and (suspected) exposure to COVID-19; O69.1XX0 Labor and delivery complicated by cord around neck, with compression, not applicable or unspecified; O99.214 Obesity complicating childbirth; O24.424 Gestational diabetes mellitus in childbirth, insulin controlled; Z3A.37 37 weeks gestation of pregnancy; Z37.0 Single live birth; Z88.8 Allergy status to other drugs, medicaments and biological substances; Z79.51 Long term (current) use of inhaled steroids; Z79.899 Other long term (current) drug therapy; Z79.4 Long term (current) use of insulin; Z79.84 Long term (current) use of oral hypoglycemic drugs
CPT/HCPCS: 01961; 36415; 80053; 82565; 82570; 82803; 83615; 84156; 84550; 85027; 86850; 86900; 86901; 87502; A9270; J1650; J1885; J2274; J2405; J2590; J2795; J3010; J3105; J7121; U0003

== ENCOUNTER 2024-07-02 11:47 | Emergency (ER) | payer OTHER ==
[~2024-07-02] VITALS: Ht 182.9 cm; Wt 119.0 kg
[~2024-07-02 11:47] MED LIST changes: +ACETAMINOPHEN500 MG PO; +CHOLESTYRAMINE P4 GM PO; +FAMOTIDINE20 MG PO; +IBUPROFEN600 MG PO; +METRONIDAZOLE250 MG PO; +ONDANSETRON ODT4 MG PO
[2024-07-02] MEDS ORDERED: SEMAGLUTID SQ (11:57)
[2024-07-02] MEDS ORDERED: BUPROPION XL150 MG PO (11:57)
[2024-07-02] MEDS ORDERED: AMOX TR-K CLV1 EAC1 PO (12:11)
[2024-07-02 12:18] VITALS: BP 124/76
== END 2024-07-02 12:18 | disposition home or self-care (01) ==
LOC: ED 11:47
DX: S91.332A Puncture wound without foreign body, left foot, initial encounter (principal); Z79.85 Long-term (current) use of injectable non-insulin antidiabetic drugs; Z79.899 Other long term (current) drug therapy; W45.0XXA Nail entering through skin, initial encounter
CPT/HCPCS: 99283

== ENCOUNTER 2024-11-28 19:21 | Emergency (ER) | payer OTHER ==
[~2024-11-28] VITALS: Ht 182.9 cm; Wt 107.0 kg
[~2024-11-28 19:21] MED LIST changes: +AMOX TR-K CLV1 EAC1 PO; +BUPROPION XL150 MG PO; +SEMAGLUTID SQ
[2024-11-28] MEDS ORDERED: LISDEXAMFETAMIN PO (19:45)
[2024-11-28 20:02] LABS: BASOPHILS 0.5 % (0.1-1.2); EOSINOPHILS 1.8 % (0.7-5.8); LYMPHOCYTES 28.9 % (19.3-51.7); MCH 30.8 PG (25.6-32.2); MCHC 33.9 g/dL (32.2-35.5); MCV 90.9 fL (79.4-94.8); MONOCYTES 6.5 % (4.7-12.5); NEUTROPHILS 62.1 % (34.0-71.1); RBC 4.74 M/uL (3.93-5.22)
[2024-11-28 20:12] LABS: INR 1.01 (0.80-1.30); PROTIME 12.9 Sec (11.2-14.2)
[2024-11-28 20:25] LABS: ALT (SGPT) 20 U/L (14-59); AST (SGOT) 14 U/L (15-37); GLOMERULAR FILTRATION RATE,EST 97 mL/min (>60); PROTEIN, TOTAL 8.0 g/dL (6.4-8.2); TSH, 3RD GENERATION 1.424 uIU/mL (0.358-3.740); UREA NITROGEN 10 mg/dL (7-18)
[2024-11-28] MEDS ORDERED: PROPRANOLOL HCL 10 MG TAB PO ONE (20:45)
[2024-11-28] MEDS ORDERED: PROPRANOLOL HCL10 MG PO (20:55)
[2024-11-28 21:24] VITALS: BP 119/71
--- NOTE | 2024-11-28 23:28 | EKG ---
[facility] [address] [facility] [place] [address] Signed Normal sinus rhythm with sinus arrhythmia Normal ECG No previous ECGs available Confirmed by Reny Goodson MD () on 11/28/2024 11:28:41 PM Electronically Signed By: RENY GOODSON MD 11/28/24 2328 PATIENT NAME: ZOILA WADECHARLI Electrocardiogram DATE OF : [birth year] PHYSICIAN: RENY GOODSON MD REPORT #: [id number] REPORT IS CONFIDENTIAL AND NOT TO BE RELEASED WITHOUT AUTHORIZATION
== END 2024-11-28 21:25 | disposition home or self-care (01) ==
LOC: ED 19:21
PROVIDERS: Family Medicine
DX: R00.2 Palpitations (principal); Z88.8 Allergy status to other drugs, medicaments and biological substances; Z79.899 Other long term (current) drug therapy
CPT/HCPCS: 36415; 71045; 80053; 83735; 84439; 84443; 84484; 85025; 85379; 85610; 93005; 93010; 93242; 93244; 99285-25

== ENCOUNTER 2025-02-02 10:56 | Emergency (ER) | payer OTHER | END 2025-02-02 13:50 | disposition home or self-care (01) | LOC: ED 10:56 | DX: G89.18 Other acute postprocedural pain (principal); Z88.8 Allergy status to other drugs, medicaments and biological substances ==